=== PATIENT | female | born 2000 | race Caucasian/White ===

== ENCOUNTER 2022-07-01 12:08 | Observation (INO) | payer MEDICAID ==
[~2022-07-01] VITALS: Ht 154.9 cm; Wt 54.4 kg
[2022-07-01] MEDS ORDERED: PNV1TABL76 MT (14:43)
== END 2022-07-01 15:00 | disposition home or self-care (01) ==
LOC: 8 EST LDRP 12:08
PROVIDERS: ADMIT Obstetrics & Gynecology; ATTEND Obstetrics & Gynecology
DX: O46.92 Antepartum hemorrhage, unspecified, second trimester (principal); Z3A.21 21 weeks gestation of pregnancy
CPT/HCPCS: 59025; 76805; 76817; G0378; 99281

== ENCOUNTER 2022-09-24 12:41 | Observation (INO) | payer MEDICAID ==
[~2022-09-24] VITALS: Ht 152.4 cm; Wt 60.8 kg
[~2022-09-24 12:41] MED LIST: PNV1TABL76 MT
== END 2022-09-24 18:35 | disposition home or self-care (01) ==
LOC: 8 EST LDRP 12:41
PROVIDERS: ADMIT Obstetrics & Gynecology; ATTEND Obstetrics & Gynecology
DX: O46.93 Antepartum hemorrhage, unspecified, third trimester (principal); O62.9 Abnormality of forces of labor, unspecified; Z3A.33 33 weeks gestation of pregnancy
CPT/HCPCS: 59025; 76805; 76818; 99281; G0378

== ENCOUNTER 2022-11-08 12:48 | Inpatient (IN) | payer MEDICAID ==
[~2022-11-08] VITALS: Ht 162.6 cm; Wt 62.1 kg
[2022-11-08] MEDS ORDERED: FENTANYL CITRATE/PF 50MCG/ML 2ML VIAL ONE (16:15)
[2022-11-08] MEDS ORDERED: METHYLERGONOVINE MALEATE 0.2 MG/ML IM PRN (16:15)
[2022-11-08] MEDS ORDERED: MORPHINE SULFATE/PF 1MG/ML 10ML AMP ONE (16:15)
[2022-11-08] MEDS ORDERED: CEFAZOLIN SODIUM 1000MG/VIAL ONE (16:15)
[2022-11-08] MEDS ORDERED: NALOXONE HCL 0.4 MG/ML 1ML VIAL IM PRN (16:15)
[2022-11-08] MEDS ORDERED: OXYTOCIN 10 UNITS/ML 1ML ONE (16:15)
[2022-11-08] MEDS ORDERED: CARBOPROST TROMETHAMINE 250 MCG/ML AMPUL IM PRN (16:15)
[2022-11-08] MEDS ORDERED: ONDANSETRON HCL 4MG/2ML INJ ONE (16:15)
[2022-11-08] MEDS ORDERED: OXYTOCIN 30 UNITS/500ML NS PMX 500 ML IV SCH ×2 (16:15→22:00)
[2022-11-08] MEDS ORDERED: DIPHENHYDRAMINE 50MG/ML VIAL ONE (16:15)
[2022-11-08] MEDS ORDERED: CITRIC ACID/SODIUM CITRATE SOLN 30ML UDC PO NR (16:30)
[2022-11-08] MEDS: LACTATED RINGERS 1,000 ML IV SCH ×3 (16:32→20:18)
[2022-11-08 16:35] LABS: CLARITY URINE CLEAR (CLEAR); COLOR URINE YELLOW (YELLOW); KETONES URINE TRACE (NEGATIVE); LEUKOCYTE ESTERASE URINE 1+ (NEGATIVE); NITRITE URINE NEGATIVE (NEGATIVE); OCCULT BLOOD URINE NEGATIVE (NEGATIVE); PH URINE 6.5 (4.5-8.0); PROTEIN URINE TRACE (NEGATIVE); SPECIFIC GRAVITY URINE 1.022 (1.005-1.030); UROBILINOGEN URINE 0.2 E.U./dL (0.2-1.0)
[2022-11-08 16:38] LABS: BASOPHILS % 0.2 % (0.0-2.0); EOSINOPHILS % 0.3 % (0.0-5.0); HEMATOCRIT. 21.7 % (36.0-48.0); HEMOGLOBIN. 7.1 g/dL (12.0-16.0); LYMPHOCYTES % 19.3 % (20.0-50.0); MEAN CORPUSCULAR HEMOGLOBIN 27.7 pg (28.0-32.0); MEAN PLATELET VOLUME 11.5 fl (7.4-10.4); MONOCYTES % 7.1 % (2.0-8.0); NEUTROPHILS % 73.1 % (40.0-76.0); PLATELET 132 x1000/uL (130-400); RED BLOOD CELL COUNT 2.56 mill/uL (4.2-5.4); RED CELL DISTRIBUTION WIDTH 15.4 % (11.6-14.6)
[2022-11-08 16:43] LABS: INR 1.2; PARTIAL THROMBOPLASTIN TIME 39.7 sec (23.4-31.0); PROTHROMBIN TIME 12.4 sec (9.6-11.0)
[2022-11-08 16:50] LABS: *AMPHETAMINES SCREEN URINE NEGATIVE (NEGATIVE); *BARBITURATES SCREEN URINE NEGATIVE (NEGATIVE); *BENZODIAZEPINES SCREEN URINE NEGATIVE (NEGATIVE); *COCAINE SCREEN URINE NEGATIVE (NEGATIVE); CANNABINOID URINE SCREEN NEGATIVE (NEGATIVE); METHADONE URINE SCREEN NEGATIVE (NEGATIVE); OPIATES URINE SCREEN NEGATIVE (NEGATIVE); PHENCYCLIDINE URINE SCREEN NEGATIVE (NEGATIVE)
[2022-11-08] MEDS ORDERED: ONDANSETRON HCL 4MG/2ML INJ IV PRN ×2 (17:09→22:00)
[2022-11-08 17:17] LABS: HEPATITIS B SURFACE ANTIGEN NEGATIVE
[2022-11-08 18:15] LABS: CHLORIDE 108 mEq/L (98-107)
[2022-11-08 19:53] VITALS: BP 128/77
[2022-11-08 20:08] VITALS: BP 119/72
[2022-11-08 20:23] VITALS: BP 122/74
[2022-11-08 20:45] VITALS: BP 134/79
[2022-11-08 21:03] LABS: BASOPHILS % 0.4 % (0.0-2.0); EOSINOPHILS % 0.2 % (0.0-5.0); HEMATOCRIT. 44.5 % (36.0-48.0); HEMOGLOBIN. 14.4 g/dL (12.0-16.0); LYMPHOCYTES % 20.7 % (20.0-50.0); MEAN CORPUSCULAR HEMOGLOBIN 29.9 pg (28.0-32.0); MEAN CORPUSCULAR VOLUME 92.4 fL (81.0-99.0); MEAN PLATELET VOLUME 11.3 fl (7.4-10.4); MONOCYTES % 8.1 % (2.0-8.0); NEUTROPHILS % 70.6 % (40.0-76.0); PLATELET 133 x1000/uL (130-400); RED BLOOD CELL COUNT 4.81 mill/uL (4.2-5.4); RED CELL DISTRIBUTION WIDTH 18.5 % (11.6-14.6)
[2022-11-08] MEDS ORDERED: TRANEXAMIC ACID 10 ML ONE (21:20)
[2022-11-08] MEDS ORDERED: HEMORRHOIDAL SUPP PR PRN (22:00)
[2022-11-08] MEDS ORDERED: DIPHENHYDRAMINE 25MG CAPSULE PO PRN (22:00)
[2022-11-08] MEDS ORDERED: KETOROLAC 30MG/ML VIAL IV PRN (22:00)
[2022-11-08] MEDS ORDERED: IBUPROFEN 400MG TABLET PO PRN (22:00)
[2022-11-08] MEDS ORDERED: LANOLIN OINT 7GM TUBE TOP PRN (22:00)
[2022-11-08] MEDS ORDERED: DEXT 5%/LACTATED RINGERS 1,000 ML IV SCH (22:00)
[2022-11-08] MEDS ORDERED: HYDROCODONE/ACETAMINOPHEN 5/325MG TABLET PO PRN (22:00)
[2022-11-08] MEDS ORDERED: BISACODYL 10MG SUPP PR PRN (22:00)
[2022-11-08] MEDS ORDERED: NALOXONE HCL 0.4MG/ML VIAL IV PRN (22:15)
[2022-11-08] MEDS ORDERED: NALOXONE HCL 0.4 MG/ML 1ML VIAL IV PRN (23:00)
[2022-11-08] MEDS ORDERED: BUTORPHANOL TARTRATE 2 MG/ML VIAL IV PRN (23:00)
[2022-11-08] MEDS ORDERED: DIPHENHYDRAMINE 50MG/ML VIAL IV PRN (23:00)
[2022-11-09] VITALS (7 sets, daily range): BP systolic 108–127; BP diastolic 63–70
[2022-11-09 00:12] LABS: BASOPHILS % 0.6 % (0.0-2.0); EOSINOPHILS % 0.4 % (0.0-5.0); HEMATOCRIT. 34.5 % (36.0-48.0); HEMOGLOBIN. 11.4 g/dL (12.0-16.0); LYMPHOCYTES % 16.2 % (20.0-50.0); MEAN CORPUSCULAR HEMOGLOBIN 28.3 pg (28.0-32.0); MEAN CORPUSCULAR VOLUME 86.1 fL (81.0-99.0); MEAN PLATELET VOLUME 10.6 fl (7.4-10.4); MONOCYTES % 5.6 % (2.0-8.0); NEUTROPHILS % 77.2 % (40.0-76.0); PLATELET 199 x1000/uL (130-400); RED BLOOD CELL COUNT 4.01 mill/uL (4.2-5.4); RED CELL DISTRIBUTION WIDTH 16.2 % (11.6-14.6)
[2022-11-09 00:28] LABS: D-DIMER 4.35 mg/L FEU (<0.50); PROTHROMBIN TIME 10.4 sec (9.6-11.0)
[2022-11-09] MEDS: KETOROLAC 30MG/ML VIAL IV SCH ×2 (04:03→09:52)
[2022-11-09 06:54] LABS: BASOPHILS % 0.7 % (0.0-2.0); EOSINOPHILS % 0.3 % (0.0-5.0); HEMATOCRIT. 32.7 % (36.0-48.0); LYMPHOCYTES % 22.8 % (20.0-50.0); MEAN CORPUSCULAR HEMOGLOBIN 28.6 pg (28.0-32.0); MEAN CORPUSCULAR VOLUME 84.9 fL (81.0-99.0); MEAN PLATELET VOLUME 11.8 fl (7.4-10.4); MONOCYTES % 6.1 % (2.0-8.0); NEUTROPHILS % 70.1 % (40.0-76.0); PLATELET 178 x1000/uL (130-400); RED BLOOD CELL COUNT 3.86 mill/uL (4.2-5.4)
[2022-11-09] MEDS: MAGNESIUM/ALUMINUM HYDROXIDE/SIMETHICONE 30ML UDC PO SCH ×3 (07:30→21:33)
[2022-11-09] MEDS: PRENATAL VIT/FE FUMARATE/FA TABLET PO SCH (13:10)
[2022-11-09] MEDS: FERROUS SULFATE 325MG TABLET PO SCH ×2 (13:10→17:30)
[2022-11-09] MEDS: SIMETHICONE 80MG TABLET CHEW PO SCH ×3 (13:10→21:33)
[2022-11-09] MEDS: IBUPROFEN 800MG TABLET PO PRN (21:33)
[2022-11-09] MEDS: DOCUSATE SODIUM 100MG CAPSULE PO SCH (21:33)
[2022-11-10 04:00] VITALS: BP 116/55
[2022-11-10 07:32] VITALS: BP 104/57
[2022-11-10] MEDS: MAGNESIUM/ALUMINUM HYDROXIDE/SIMETHICONE 30ML UDC PO SCH ×4 (08:23→19:51)
[2022-11-10] MEDS: PRENATAL VIT/FE FUMARATE/FA TABLET PO SCH (08:23)
[2022-11-10] MEDS: SIMETHICONE 80MG TABLET CHEW PO SCH ×4 (08:23→19:52)
[2022-11-10] MEDS: FERROUS SULFATE 325MG TABLET PO SCH ×3 (08:23→17:30)
[2022-11-10 15:17] VITALS: BP 99/63
[2022-11-10 19:30] VITALS: BP 119/65
[2022-11-10] MEDS: DOCUSATE SODIUM 100MG CAPSULE PO SCH (19:51)
[2022-11-10] MEDS: IBUPROFEN 800MG TABLET PO PRN (19:53)
[2022-11-11 04:00] VITALS: BP 97/53
[2022-11-11] MEDS: IBUPROFEN 800MG TABLET PO PRN (04:02)
[2022-11-11 08:30] VITALS: BP 114/60
[2022-11-11] MEDS: SIMETHICONE 80MG TABLET CHEW PO SCH (08:37)
[2022-11-11] MEDS: PRENATAL VIT/FE FUMARATE/FA TABLET PO SCH (08:37)
[2022-11-11] MEDS: MAGNESIUM/ALUMINUM HYDROXIDE/SIMETHICONE 30ML UDC PO SCH (08:37)
[2022-11-11] MEDS: FERROUS SULFATE 325MG TABLET PO SCH (08:37)
[2022-11-11] MEDS ORDERED: IBUP-2030 PO (13:51)
== END 2022-11-11 15:05 | disposition home or self-care (01) | DRG 540 ==
LOC: OBSVTOIN 12:48 → 8 EST LDRP 12:48 → 8EST 11-09 00:40
PROVIDERS: ADMIT Obstetrics & Gynecology; ATTEND Obstetrics & Gynecology
PROC: 10D00Z1 Extraction of Products of Conception, Low, Open Approach (ICD-10-PCS; principal; 2022-11-08)
PROC: 30233N1 Transfusion of Nonautologous Red Blood Cells into Peripheral Vein, Percutaneous Approach (ICD-10-PCS; 2022-11-08)
DX: O48.0 Post-term pregnancy (principal); D64.9 Anemia, unspecified; O34.211 Maternal care for low transverse scar from previous cesarean delivery; O99.02 Anemia complicating childbirth; Z37.0 Single live birth; Z3A.40 40 weeks gestation of pregnancy; Z20.822 Contact with and (suspected) exposure to COVID-19
CPT/HCPCS: 36415; 76805; 76818; 80053; 80305; 81003; 85025; 85379; 85384; 86592; 86703; 86762; 86850; 86900; 86920; 87340; 87426; 88307; 99281; J0690; J1200; J1885; J2274; J2405; J3010; J7120; J7121; P9016; A4315; J2590